=== PATIENT | female | born 1965 | race Caucasian/White ===

== ENCOUNTER → 2019-08-02 17:59 | Outpatient (CLI) | payer OTHER, SELFPAY ==
--- NOTE | ~2019-08-02 | MM_ITS ---
EXAMINATION: MM screening lew BI w tiff HISTORY: Screening mammogram TECHNIQUE: Craniocaudal and mediolateral oblique 3-D tomosynthesis images were obtained and synthetic 2-D images were generated. CAD analysis was submitted and interpreted. COMPARISON: Comparison to multiple prior studies sequentially, with oldest reviewed study dated 01/18. BREAST PARENCHYMAL COMPOSITION: There are scattered areas of fibroglandular density. FINDINGS: There is a new focal asymmetry subareolar location the right breast on CC view. The left br east is stable without evidence for malignancy. There are benign bilateral breast calcifications. IMPRESSION: 1. New focal right breast asymmetry, subareolar location. 2. Additional mammographic views and possible breast ultrasound are recommended. BI-RADS Category 0: Incomplete: Needs additional imaging evaluation. Reviewed, dictated and finalized at location A. IMPRESSION: 1. New focal right breast asymmetry, subareolar location. 2. Additional mammographic views and possible breast ultrasound are recommended . BI-RADS Category 0: Incomplete: Needs additional imaging evaluation.
== END ==
PROVIDERS: Visit Provider Obstetrics & Gynecology
DX: Z12.31 Encounter for screening mammogram for malignant neoplasm of breast (principal); R92.8 Other abnormal and inconclusive findings on diagnostic imaging of breast
CPT/HCPCS: 77063; 77067

== ENCOUNTER → 2019-08-07 08:35 | Outpatient (CLI) | payer OTHER, SELFPAY ==
--- NOTE | ~2019-08-07 | MMUS_ITS ---
EXAMINATION: MM diagnostic mammo unilat RT, US breast RT limited HISTORY: Right breast asymmetry on screening mammogram TECHNIQUE: Additional 3-D tomosynthesis images of the right breast were performed and synthetic 2-D i mages were generated. CAD analysis was submitted and interpreted. High resolution limited right breas t ultrasound was performed. COMPARISON: 08/02/2019, 02/18/2018, 06/03/2017 FINDINGS: MAMMOGRAPHIC FINDINGS: There is a subtle obscure an asymmetry in the subareolar aspect of the slightly inner breast. No susp icious calcification or architectural distortion are identified. ULTRASOUND: There is a 5 mm x 3 mm oval, circumscribed, parallel, hypoechoic mass with thin internal septation at the 2:00 location 0.5 cm from the nipple with no posterior features or internal vascularity. IMPRESSION: 1. Probably benign right breast mass. 2. Recommend 6 month follow-up right diagnostic mammogram and ultrasound. BI-RADS category 3, probably benign findings. Reviewed, dictated and finalized at location A. IMPRESSION: 1. Probably benign right breast mass. 2. Recommend 6 month follow-up right diagnostic mammogram and ultrasound. BI-RADS category 3, probably benign findings.
== END ==
PROVIDERS: Visit Provider Obstetrics & Gynecology
DX: R92.8 Other abnormal and inconclusive findings on diagnostic imaging of breast (principal)
CPT/HCPCS: 76642; 77065

== ENCOUNTER 2020-04-08 14:05 | Outpatient (CLI) | payer OTHER, SELFPAY ==
--- NOTE | ~2020-04-08 | MMUS_ITS ---
EXAMINATION: MM diagnostic lew RT w tiff, US breast RT complete HISTORY: Six-month follow-up of 5 x 3 mm oval circumscribed parallel hypoechoic mass with an internal septation at 2:00 0.5 cm from the nipple TECHNIQUE: ML, MLO and cc full field 3-D tomosynthesis images of the right breast were performed and synthetic 2-D images were generated. ML, MLO and cc magnification views of right breast. CAD analysis was submitted and interpreted. High resolution complete right breast ultrasound was performed. COMPARISON: 08/07/2019 diagnostic right digital mammogram and limited right breast ultrasound 08/02/2019 bilateral digital screening mammogram FINDINGS: MAMMOGRAPHIC FINDINGS: There is a cluster of grouped granular appearing microcalcifications situated anteriorly in the upper outer quadrant of the right breast. Stereotactic biopsy is recommended. Scattered benign calcifications are noted elsewhere in the right breast. ULTRASOUND: No suspicious mass or suspicious shadowing is evident in the right breast. No other significant sonog raphic finding. IMPRESSION: 1. Cluster of grouped granular microcalcifications in anterior upper outer right breast 2. Stereotactic biopsy is recommended. BI-RADS category 4, suspicious findings. Dr. Lai telephoned the report and stereotactic biopsy recommendation on 04/08/2020 at 1553 hours to Informatics Manager. Ly. Reviewed, dictated and finalized at location A. [employer]AL OFFICE OPERATOR SUPERVISOR IMPRESSION: 1. Cluster of grouped granular microcalcifications in anterior upper outer righ t breast 2. Stereotactic biopsy is recommended. BI-RADS category 4, suspicious findings. Dr. Lai telephoned the report and stereotactic biopsy recommendation on 2019 at 1553 hours to Informatics Manager. Ly.
== END 2020-04-08 14:06 | disposition home or self-care (01) ==
PROVIDERS: PCP Internal Medicine; Visit Provider Obstetrics & Gynecology
DX: R92.8 Other abnormal and inconclusive findings on diagnostic imaging of breast (principal)
CPT/HCPCS: 76641; 77061; 77065; G0279

== ENCOUNTER → 2022-10-30 13:03 | Outpatient (CLI) | payer OTHER, SELFPAY ==
--- NOTE | ~2022-10-30 | US_ITS ---
EXAMINATION: US pelvic complete w TV DATE: 10/30/2022 13:45 INDICATION: Pelvic pain. Postmenopausal. Comparison:No prior study TECHNIQUE: Multiple transabdominal and endovaginal sonographic images of the pelvis performed. FINDINGS: The uterus measures 7.4 x 3.9 x 6.1 cm. At the fundus there is a complex intramural fibroid measuring 3.8 x 3.2 x 4.2 cm. The endometrial complex measures 6 mm. The right ovary measures 2.2 x 1.4 x 1.7 cm and the left ovary measures 1.6 x 1.3 x 1.6 cm. There ar e small follicles in each ovary. Normal doppler signal in both ovaries. There is no free fluid in the pelvis. There are no abnormal masses seen on either side. IMPRESSION: 1. Thickened endomtrial complex. The differential diagnosis includes endometrial hyperplasia, polyp a nd carcinoma. Biopsy is recommended. 2: Intramural uterine fibroid measuring 4.2 cm. Reviewed, dictated and finalized at location [] IMPRESSION: 1. Thickened endomtrial complex. The differential diagnosis includes endometria l hyperplasia, polyp and carcinoma. Biopsy is recommended. 2: Intramural uterine fibroid measuring 4.2 cm.
== END ==
PROVIDERS: PCP Physician Assistant; Visit Provider Obstetrics & Gynecology Gynecology
DX: R10.2 Pelvic and perineal pain (principal); D25.9 Leiomyoma of uterus, unspecified
CPT/HCPCS: 76830; 76856

== ENCOUNTER 2022-11-23 03:54 | Day surgery (SDC) | payer OTHER, SELFPAY ==
[2022-11-18 09:14] VITALS: BMI 26.4
--- NOTE | 2022-11-18 09:20 | PC.NURSE ---
Report to the Outpatient Waiting Room, entrance under the green pavilion located off [facility], at time 0715 on date 11/23/22. Planned Procedure Time: 0915. Time changes happen often and if your time is changed the preop area will call you the afternoon before. - You and your visitor will be asked to self-screen and do not enter if you have any COVID symptoms. - A mask is optional within the hospital at this time. Patients may have clear liquids (water, carbonated beverages, clear teas, apple juice) until 3 hours prior to surgery with a maximum of 20 ounces. - No food from midnight until time of surgery Take the following medications with a SIP of water the morning of surgery: NONE DO NOT STOP ANY OF YOUR OTHER PRESCRIPTION MEDICATIONS PRIOR TO SURGERY ?EXCEPT THE FOLLOWING Medications to discontinue per physician: VITAMINS Date to take last dose: 11/19/22 Please no make-up, nail south korean, hairspray, perfume, deodorant, or body powder the day of surgery. No jewelry (including any body piercings) or valuables the day of surgery, leave them at home. Please take a shower or bath the night before, or the morning of, surgery with an antibacterial soap. Wear comfortable, loose fitting clothing. - Jewelry must be removed prior to entering the operating room. Rings and piercings that are not removed may be cut off. - The hospital will not accept responsibility for valuables. - Please leave all valuables, including medications, at home the day of surgery. If you are going home after surgery, a licensed stock driver must drive you home. - NO public transportation without another adult if you receive anesthesia. - We recommend that an adult stay with you for 24 hours following discharge. - We also recommend that you do not drive, make important decision, drink alcoholic beverages, or take any drugs that were not prescribed by your health care provider for at least 24 hours after your discharge time. Follow any additional instructions given to you from your surgeon. If you or anyone in your household have experienced Covid symptoms in the past week, please notify your surgeon or the nurse liaison at the phone number below for possible testing. Telephone instructions given to PT - TY EDMONDS and asked if any additional questions and then verbalized understanding. Patient advised to call surgeon office or pre surgery nurse liaison [phone] if any additional questions.
[2022-11-23 07:39] VITALS: BMI 26.9
[2022-11-23 07:44] VITALS: BP 109/62; PULSE 74; RESP 16; TEMP 37.1; O2SAT 100
--- NOTE | 2022-11-23 07:49 | WPDHPUPDATE1 ---
History and Physical Update Update Date/Time: 11/23/22 07:49 History and Physical has been reviewed, including an updated exam of the patient. There are NO changes in the patient's condition. Risks, benefits, and alternatives have been discussed and questions answered. Patient agrees to proceed with procedure.
--- NOTE | 2022-11-23 07:49 | PM.HPGS ---
History of Present Illness History of Present Illness Consent: Risks, benefits, and alternatives have been discussed and questions answered. Patient agrees to proceed with procedure. Chief complaint: thickened endometrium Narrative: Soha Wren is a 57 year old female who presented for her annual exam complaining of bilateral adnexal pain. Pelvic ultrasound was performed and ovaries were small consistent with postmenopausal status however the endometrium measured 6mm. The patient denies vaginal bleeding. Was recommended to proceed with D&C hysteroscopy. Risks of infection, bleeding, perforation, and possible pathology are reviewed. Patient prefers the operating room location secondary to anxiety. Patient voices understanding and agrees to proceed. 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) x2 Family History Family History (Updated 01/04/14 @ 07:13 by DOCTOR UNKNOWN) Mother Hypertension Family history of kidney disease Sibling Hypertension Family history of kidney disease Social History Social History Smoking status: Former smoker Tobacco type: cigarettes Additional smoking assessment comments: FORMER SOMEDAY SMOKER OVER 20 YEARS AGO Alcohol intake: current Alcohol use details: VERY RARE Substance use: never Substance use type: does not use Living arrangements: with family Spiritual care concerns: No Meds Home Medications and Allergies Home Medications Medication Instructions Recorded Confirmed Type ergocalciferol (vitamin D2) 1,250 1,250 mcg PO WEEKLY 11/18/22 11/18/22 History mcg (50,000 unit) capsule multivitamin 1 tablet PO DAILY 11/18/22 11/18/22 History Allergies Allergy/AdvReac Type Severity Reaction Status Date / Time No Known Allergies Allergy Unverified 11/18/22 09:14 Exam Const: General: healthy appearing and alert Orientation/consciousness: patient oriented x3 Resp: Effort & Inspection: normal respiratory effort Auscultation: clear to auscultation bilaterally Cardio: Rate: regular rate Rhythm: regular rhythm GI: GI Palp: Yes Soft to palpation, No Tenderness to palpation present (GI) and No Palpable mass present : External Female Exam: normal external appearance Speculum Exam - Vagina: normal appearance of the vagina and normal vaginal discharge Speculum Exam - Cervix: normal appearance of the cervix Bimanual exam- vagina & uterus: uterine size normal and consistency normal Bimanual Exam- Adnexa, other: normal adnexae and No adnexal tenderness Neuro: General: patient oriented x3 Assessment and Plan Assessment and plan (1) Thickened endometrium: Code(s): R93.89 - Abnormal findings on diagnostic imaging of other specified body structures Status: Acute Assessment and Plan: plan to proceed with D&C hysteroscopy (2) Hearing loss: Code(s): H91.90 - Unspecified hearing loss, unspecified ear Status: Acute Assessment and Plan: the patient reads lips quite well
[2022-11-23] MEDS: ACETAMINOPHEN 500 MG TABLET 1000 MG PO (08:21)
[2022-11-23 08:35] VITALS: BP 134/90; PULSE 92; RESP 16; TEMP 37.2; O2SAT 98
--- NOTE | 2022-11-23 08:44 | WPDANESEPPF ---
Anes - Initial Pre Proc Eval Procedure: Operation Date: 11/23/22 09:15 Proposed Procedures p Hysteroscopy Dilation and Curettage - Pilar Silva MD Date/Time: 11/23/22 08:44 Surgeon: Pilar Silva MD Pre Op Diagnosis: thickened endometrium Patient Data Age: 57 Gender: F Height: 1.66 m Weight: 74.4 kg Last Vital Signs Temp 37.1 C 11/23/22 07:44 Pulse 74 11/23/22 07:44 Resp 16 11/23/22 07:44 BP 109/62 11/23/22 07:44 Pulse Ox 100 11/23/22 07:44 O2 Del Method Room Air 11/23/22 07:44 Allergies Allergy/AdvReac Type Severity Reaction Status Date / Time No Known Allergies Allergy Verified 11/23/22 08:26 Home Medications Medication Instructions Recorded Confirmed Type ergocalciferol (vitamin D2) 1,250 1,250 mcg PO WEEKLY 11/18/22 11/23/22 History mcg (50,000 unit) capsule multivitamin 1 tablet PO DAILY 11/18/22 11/23/22 History Patient hx anesthesia problems: none Family hx anesthesia problems: none Results Review: All pre-operative results and documents have been reviewed as part of the pre-operative evaluation. 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 delivery) x2 Family History Family History Mother Hypertension Family history of kidney disease Sibling Hypertension Family history of kidney disease Social History Social History Smoking status: Former smoker Tobacco type: cigarettes Additional smoking assessment comments: FORMER SOMEDAY SMOKER OVER 20 YEARS AGO Alcohol intake: current Alcohol use details: VERY RARE Substance use: never Substance use type: does not use Living arrangements: with family Spiritual care concerns: No Anes - Eval Final PreProcedure Day of Procedure 11/23/22 08:44 Patient weight: overweight Heart: regular rate and rhythm Lungs: clear to auscultation Airway: Mallampati scale class II Neurological: alert and oriented Last oral intake: >/= 8 hours ASA classification: III Emergent: no Anesthetic plan: proceed Anesthesia type and monitoring: general GIVS and standard monitoring Results Review: All pre-operative results and documents have been reviewed as part of the pre-operative evaluation. Informed Consent: The patient's anesthetic plan and its attendant risks and benefits were discussed with the patient/family/POA. Questions were solicited and answers provided to the satisfaction of the patient/family/POA.
--- NOTE | 2022-11-23 09:50 | W.PM.PROC2 ---
Procedure Note - Detailed Date of Procedure 11/23/22 Pre-op Diagnosis thickened endometrium Post-op Diagnosis Same Procedure Performed D&C hysteroscopy with resection of polyp Surgeon Pilar Silva MD Anesthesia MAC Findings uterus sounds to 8cm and appears atrophic; there is a sessile polyp filling approximately half of the posterior wall Description of Procedure The patient is taken to the operating room and placed under anesthesia in the dorsal lithotomy position. She was prepped and draped in the usual sterile fashion. The bivalve speculum was placed in the vagina and the cervix grasped on the anterior lip with a tenaculum. The uterus is sounded to 8cm. The diagnostic hysteroscope was placed with the above-stated findings. The Aveeta resection device is placed and under direct visualization the polyp was removed in its entirety. The hysteroscope and resection device are removed. The 00 sharp curette was used to curette the endometrium until a good uterine cry was noted in all areas. Minimal material was obtained during this process due to the atrophic appearance. All instruments are removed. Sponge, needle, and instrument counts are correct per the OR staff. Patient was awakened from anesthesia and taken to recovery in stable condition. Estimated Blood Loss 5 Drains No Packing No Pathology Yes ( Endometrial shavings and curettings) Complications No immediate complications Condition Stable Disposition PACU
[2022-11-23 09:52] VITALS: BP 94/56; PULSE 64; RESP 12; O2SAT 95
[2022-11-23] MEDS: LACTATED RINGERS 1,000 ML 30 ML IV CONT (09:52)
[2022-11-23 10:15] VITALS: BP 102/69; PULSE 56; RESP 20
[2022-11-23 10:45] VITALS: BP 103/69; PULSE 57; RESP 20
== END 2022-11-23 10:47 | disposition home or self-care (01) ==
PROVIDERS: PCP Physician Assistant; Visit Provider Obstetrics & Gynecology Gynecology
PROC: 0U5B8ZZ Destruction of Endometrium, Via Natural or Artificial Opening Endoscopic (ICD-10-PCS; CPT 58563; principal; 2022-11-23 09:15)
DX: N84.0 Polyp of corpus uteri (principal); Q87.81 Alport syndrome; Z87.891 Personal history of nicotine dependence
CPT/HCPCS: 58558; 88305; A9270; J2250; J2405; J2704; J3010; J7120